=== PATIENT | male | born 1940 | race Caucasian/White ===

== ENCOUNTER 2017-06-13 08:51 | Day surgery (SDC) | payer MEDICARE, BC ==
[2017-06-12 10:42] LABS: BASOPHILS % (AUTO) 0.2 % (0-1); EOSINOPHILS # (AUTO) 0.2 X10'3 (0-0.9); EOSINOPHILS % (AUTO) 2.3 % (0-6); HEMATOCRIT 38.8 % (42.0-52.0); HEMOGLOBIN 13.3 g/dl (14.0-17.9); LYMPHOCYTES # (AUTO) 0.8 X10'3 (1.1-4.8); MEAN CORPUSCULAR HEMOGLOBIN 30.8 PG (27.0-31.0); MEAN CORPUSCULAR HGB CONC 34.3 % (33.0-36.5); MEAN CORPUSCULAR VOLUME 89.8 FL (78-98); MEAN PLATELET VOLUME 8.8 FL (7.4-10.4); MONOCYTES # (AUTO) 0.7 X10'3 (0-0.9); MONOCYTES % (AUTO) 10.1 % (2-12); NEUTROPHILS # (AUTO) 5.5 X10'3 (1.8-7.7); NEUTROPHILS % (AUTO) 76.4 % (42-75); PLATELET COUNT 121 X10'3 (140-440); RED BLOOD COUNT 4.32 X10'6 (4.70-6.10); RED CELL DISTRIBUTION WIDTH 14.4 % (11.5-14.5); WHITE BLOOD COUNT 7.1 X10'3 (4.5-11.0)
[2017-06-12 10:56] LABS: ALANINE AMINOTRANSFERASE 33 U/L (12-78); ALBUMIN 3.4 G/DL (3.4-5.0); ALBUMIN/GLOBULIN RATIO 0.8 (1.1-1.5); ALKALINE PHOSPHATASE 68 IU/L (46-116); ANION GAP 4 (8-16); ASPARTATE AMINO TRANSFERASE 21 U/L (10-37); BILIRUBIN,TOTAL 0.9 MG/DL (0.1-1.0); BLOOD UREA NITROGEN 26 MG/DL (7-18); BUN/CREATININE RATIO 23.4 (5.4-32.0); CHLORIDE 106 MMOL/L (99-107); CHOL/HDL RATIO 2.9 (0.00-4.99); CHOLESTEROL 100 MG/DL (0-200); CREATININE 1.11 MG/DL (0.60-1.10); GLUCOSE 97 MG/DL (70-104); HDL CHOLESTEROL 35 MG/DL (35-60); LDL CHOLESTEROL 52 MG/DL (50-100); POTASSIUM 4.4 MMOL/L (3.5-5.1); SODIUM 144 MMOL/L (135-145); TOTAL PROTEIN 7.8 G/DL (6.4-8.2); TRIGLYCERIDES 61 MG/DL (20-135); eGFR 64 ML/MIN
[~2017-06-13] VITALS: Ht 177.8 cm; Wt 95.4 kg
[2017-06-13] VITALS (10 sets, daily range): BP systolic 85–129; BP diastolic 41–79
[2017-06-13 09:39] LABS: INR 1.1 INR; PARTIAL THROMBOPLASTIN TIME 26 SECONDS (22-32); PROTHROMBIN TIME 11.1 SECONDS (9.0-12.0)
[2017-06-13] MEDS ORDERED: CARV25TA PO (10:12)
[2017-06-13] MEDS ORDERED: TEST200V10 IM (10:12)
[2017-06-13] MEDS ORDERED: GLUC15006 PO (10:12)
[2017-06-13] MEDS ORDERED: ASPI-611 PO (10:12)
[2017-06-13] MEDS ORDERED: CLOP75TA15 PO (10:12)
[2017-06-13] MEDS ORDERED: ROSU10TA PO (10:12)
[2017-06-13] MEDS ORDERED: UBID100C16 PO (10:12)
[2017-06-13] MEDS ORDERED: VALS80TA2 PO (10:12)
[2017-06-13] MEDS ORDERED: ISOS30TA6 PO (10:16)
[2017-06-13] MEDS ORDERED: diphenhydrAMINE 25mg capsule PO PRN (10:55)
[2017-06-13] MEDS ORDERED: LORazepam 0.5 MG tablet PO PRN (10:55)
[2017-06-13] MEDS ORDERED: normal saline 1000ml 1,000 ML IV SCH (10:55)
[2017-06-13] MEDS ORDERED: fentaNYL/PF 50MCG/1 ML 2ML syringe ONE (11:34)
[2017-06-13] MEDS ORDERED: nitroGLYCERIN-Tridil 50MG/D5W 250 ML IV ONE (11:34)
[2017-06-13] MEDS ORDERED: midazolam 2 mg/2 ml injection ONE (11:35)
[2017-06-13] MEDS ORDERED: heparin 1,000unit/ml 10ml vial 10 ML ONE (11:35)
[2017-06-13] MEDS ORDERED: LIDOcaine 1%/PF (10mg/ml) 5ml vial ONE (11:35)
[2017-06-13] MEDS ORDERED: iohexol 350 MG/ML 50ML vial IV ONE ×2 (11:35→12:23)
[2017-06-13] MEDS ORDERED: iohexol 350MG/ML 100ml bottle IV ONE (11:35)
[2017-06-13] MEDS ORDERED: furosemide 40mg/4ml inj ONE (12:54)
[2017-06-13 22:35] LABS: ISTAT HGB ART 11.9 g/dl (14.0-18.0); ISTAT Hct ART 35 %PCV (42-52); ISTAT O2 SATURATION ARTERIAL 98 % (95-98); ISTAT SOURCE ART
[2017-06-13 22:36] LABS: ISTAT Hct MIX 35 %PCV (42-52); ISTAT O2 SATURATION MIX VENOUS 70 % (60-80); ISTAT SOURCE MIX
== END 2017-06-13 19:00 | disposition home or self-care (01) ==
LOC: SSTAY O 08:51
PROVIDERS: ATTEND Internal Medicine Cardiovascular Disease
DX: I25.119 Atherosclerotic heart disease of native coronary artery with unspecified angina pectoris (principal); I11.0 Hypertensive heart disease with heart failure; I50.9 Heart failure, unspecified; E78.5 Hyperlipidemia, unspecified; G47.33 Obstructive sleep apnea (adult) (pediatric); I42.9 Cardiomyopathy, unspecified; I48.91 Unspecified atrial fibrillation; K21.9 Gastro-esophageal reflux disease without esophagitis; M19.90 Unspecified osteoarthritis, unspecified site; Z85.820 Personal history of malignant melanoma of skin; Z72.89 Other problems related to lifestyle; Z95.5 Presence of coronary angioplasty implant and graft; Z95.810 Presence of automatic (implantable) cardiac defibrillator; Z79.82 Long term (current) use of aspirin; Z86.74 Personal history of sudden cardiac arrest; Z87.891 Personal history of nicotine dependence; Z79.899 Other long term (current) drug therapy
CPT/HCPCS: 36415; 80053; 80061; 82803; 85014; 85025; 85610; 85730; 93005; 93460; 99152; 99153; A6257; C1760; C1769; J1644; J1940; J2001; J2250; J3010; J3490; J7030; Q0163; Q9967

== ENCOUNTER 2017-10-23 07:00 | Day surgery (SDC) | payer MEDICARE, BC ==
[2017-10-22 11:42] LABS: BASOPHILS % (AUTO) 0.3 % (0-1); EOSINOPHILS # (AUTO) 0.1 X10'3 (0-0.9); EOSINOPHILS % (AUTO) 1.4 % (0-6); HEMOGLOBIN 12.2 g/dl (14.0-17.9); LYMPHOCYTES # (AUTO) 0.7 X10'3 (1.1-4.8); LYMPHOCYTES % (AUTO) 12.9 % (21-51); MEAN CORPUSCULAR HEMOGLOBIN 30.6 PG (27.0-31.0); MEAN CORPUSCULAR VOLUME 90.1 FL (78-98); MEAN PLATELET VOLUME 9.5 FL (7.4-10.4); MONOCYTES # (AUTO) 0.5 X10'3 (0-0.9); MONOCYTES % (AUTO) 8.7 % (2-12); NEUTROPHILS # (AUTO) 4.4 X10'3 (1.8-7.7); NEUTROPHILS % (AUTO) 76.7 % (42-75); PLATELET COUNT 130 X10'3 (140-440); RED BLOOD COUNT 3.99 X10'6 (4.70-6.10); RED CELL DISTRIBUTION WIDTH 15.8 % (11.5-14.5); WHITE BLOOD COUNT 5.7 X10'3 (4.5-11.0)
[2017-10-22 11:51] LABS: ALBUMIN 3.6 G/DL (3.4-5.0); ANION GAP 4 (8-16); BLOOD UREA NITROGEN 35 MG/DL (7-18); BUN/CREATININE RATIO 22.9 (5.4-32.0); CALCIUM 8.9 MG/DL (8.5-10.1); CHLORIDE 103 MMOL/L (99-107); CREATININE 1.53 MG/DL (0.60-1.10); GLUCOSE 106 MG/DL (70-104); POTASSIUM 4.8 MMOL/L (3.5-5.1); SODIUM 138 MMOL/L (135-145); TOTAL CARBON DIOXIDE 30.7 MMOL/L (24-32); eGFR 44 ML/MIN
[2017-10-22 11:52] LABS: INR 1.1 INR; PROTHROMBIN TIME 11.8 SECONDS (9.0-12.0)
[2017-10-23] VITALS (12 sets, daily range): BP systolic 91–119; BP diastolic 56–76
[~2017-10-23] VITALS: Ht 177.8 cm; Wt 89.3 kg
[~2017-10-23 07:00] MED LIST: ASPI-611 PO; CARV25TA PO; CLOP75TA15 PO; GLUC15006 PO; ISOS30TA6 PO; LOSA25TA21 PO; ROSU10TA PO; TEST200V10 IM; UBID100C16 PO
[2017-10-23] MEDS ORDERED: morphine 10mg/ml inj. IV ONE (07:35)
[2017-10-23] MEDS ORDERED: LORazepam 0.5 MG tablet PO ONE (07:35)
[2017-10-23] MEDS ORDERED: atropine 0.1mg/ml 10ml syringe IV ONE (07:35)
[2017-10-23] MEDS ORDERED: normal saline 1000ml 1,000 ML IV SCH (07:35)
[2017-10-23] MEDS ORDERED: diphenhydrAMINE 25mg capsule PO ONE (07:35)
[2017-10-23] MEDS ORDERED: MIDAZolam 5mg/ml 2ml vial IV ONE (07:35)
[2017-10-23] MEDS ORDERED: amiodarone in dextrose, iso-osm 150mg/100ml bag IV ONE (07:35)
[2017-10-23] MEDS ORDERED: BUME1TAB4 PO (07:57)
[2017-10-23] MEDS ORDERED: IBUP-24 PO (07:57)
[2017-10-23] MEDS ORDERED: MULT-38 PO (07:57)
[2017-10-23] MEDS ORDERED: CARV3.12 PO (07:57)
[2017-10-23] MEDS ORDERED: APIX5TAB3 PO (07:57)
[2017-10-23] MEDS ORDERED: SPIR25TA5 PO (07:57)
== END 2017-10-23 11:45 | disposition home or self-care (01) ==
LOC: SSTAY O 07:00
PROVIDERS: ATTEND Internal Medicine Cardiovascular Disease
DX: I48.1 Persistent atrial fibrillation (principal); E78.5 Hyperlipidemia, unspecified; I25.10 Atherosclerotic heart disease of native coronary artery without angina pectoris; I42.0 Dilated cardiomyopathy; I45.19 Other right bundle-branch block; I13.0 Hypertensive heart and chronic kidney disease with heart failure and stage 1 through stage 4 chronic kidney disease, or unspecified chronic kidney disease; N18.9 Chronic kidney disease, unspecified; I50.22 Chronic systolic (congestive) heart failure; I25.2 Old myocardial infarction; G47.33 Obstructive sleep apnea (adult) (pediatric); I08.2 Rheumatic disorders of both aortic and tricuspid valves; I27.20 Pulmonary hypertension, unspecified; K21.9 Gastro-esophageal reflux disease without esophagitis; M19.90 Unspecified osteoarthritis, unspecified site; Z95.810 Presence of automatic (implantable) cardiac defibrillator; Z95.5 Presence of coronary angioplasty implant and graft; Z79.01 Long term (current) use of anticoagulants; Z79.82 Long term (current) use of aspirin; Z79.1 Long term (current) use of non-steroidal anti-inflammatories (NSAID); Z86.74 Personal history of sudden cardiac arrest; Z87.891 Personal history of nicotine dependence; Z72.89 Other problems related to lifestyle; Z90.89 Acquired absence of other organs; Z85.828 Personal history of other malignant neoplasm of skin; Z98.890 Other specified postprocedural states; Z79.899 Other long term (current) drug therapy; Z82.5 Family history of asthma and other chronic lower respiratory diseases; Z80.0 Family history of malignant neoplasm of digestive organs
CPT/HCPCS: 36415; 80048; 85025; 85610; 92960; 93005; J2250; J2270; J7030; A4620; A6449; J0282; J0461

== ENCOUNTER 2017-11-26 11:21 | Outpatient (CLI) | payer MEDICARE, BC ==
[~2017-11-26 11:21] MED LIST changes: +APIX5TAB3 PO; +BUME1TAB4 PO; -CARV25TA PO; +CARV3.12 PO; -CLOP75TA15 PO; +IBUP-24 PO; +LOSA25TA12 PO; -LOSA25TA21 PO; +MULT-38 PO; +SPIR25TA5 PO
== END 2017-11-26 23:59 | disposition home or self-care (01) ==
LOC: CARD DIAG 11:21
PROVIDERS: ATTEND Internal Medicine Cardiovascular Disease
DX: I08.3 Combined rheumatic disorders of mitral, aortic and tricuspid valves (principal); I42.8 Other cardiomyopathies; I50.9 Heart failure, unspecified; Z79.82 Long term (current) use of aspirin; Z87.891 Personal history of nicotine dependence; Z85.831 Personal history of malignant neoplasm of soft tissue
CPT/HCPCS: 93306

== ENCOUNTER 2018-07-03 07:22 | Outpatient (CLI) | payer MEDICARE, BC ==
[~2018-07-03] VITALS: Ht 177.8 cm; Wt 93.0 kg
[~2018-07-03 07:22] MED LIST changes: -LOSA25TA12 PO; +LOSA25TA41 PO; -ROSU10TA PO; +ROSU10TA2 PO
[2018-07-03 07:51] LABS: TOTAL HEMOGLOBIN 12.3 G/dl (14.0-18.0)
[2018-07-03] MEDS ORDERED: albuterol 2.5 MG/3 ML nebule NEB ONE (08:25)
== END 2018-07-03 23:59 | disposition home or self-care (01) ==
LOC: RT 07:22
PROVIDERS: ATTEND Internal Medicine Cardiovascular Disease
DX: R94.2 Abnormal results of pulmonary function studies (principal); Z79.899 Other long term (current) drug therapy
CPT/HCPCS: 71046; 85018; 94060; 94727; 94729; 94760

== ENCOUNTER 2021-02-16 10:13 | Outpatient (CLI) | payer MEDICARE, BC ==
[~2021-02-16] VITALS: Ht 177.8 cm; Wt 93.4 kg
[~2021-02-16 10:13] MED LIST changes: -BUME1TAB4 PO; +BUME1TAB8 PO; -ISOS30TA6 PO; +ISOS30TA84 PO; -TEST200V10 IM; +TEST200V33 IM
[2021-02-16 10:37] LABS: TOTAL HEMOGLOBIN 15.3 G/dl (14.0-18.0)
[2021-02-16] MEDS ORDERED: albuterol 2.5 MG/3 ML nebule NEB ONE ×2 (11:15→11:55)
== END 2021-02-16 23:59 | disposition home or self-care (01) ==
LOC: RT 10:13
PROVIDERS: ATTEND Internal Medicine Cardiovascular Disease
DX: R94.2 Abnormal results of pulmonary function studies (principal); M47.819 Spondylosis without myelopathy or radiculopathy, site unspecified; Z79.899 Other long term (current) drug therapy
CPT/HCPCS: 71046; 85018; 94060; 94727; 94729; 94760

== ENCOUNTER 2023-02-28 09:33 | Day surgery (SDC) | payer MEDICARE, BC ==
[2023-02-27 12:55] LABS: BASOPHILS % (AUTO) 0.4 % (0-1); EOSINOPHILS # (AUTO) 0.1 X10'3 (0-0.9); EOSINOPHILS % (AUTO) 2.1 % (0-6); HEMOGLOBIN 11.7 g/dl (14.0-17.9); LYMPHOCYTES # (AUTO) 0.8 X10'3 (1.1-4.8); LYMPHOCYTES % (AUTO) 13.1 % (21-51); MEAN CORPUSCULAR HEMOGLOBIN 30.9 PG (27.0-31.0); MEAN CORPUSCULAR HGB CONC 32.5 g/dL (33.0-36.5); MEAN PLATELET VOLUME 10.3 FL (7.4-10.4); MONOCYTES # (AUTO) 0.6 X10'3 (0-0.9); MONOCYTES % (AUTO) 9.8 % (2-12); NEUTROPHILS # (AUTO) 4.3 X10'3 (1.8-7.7); NEUTROPHILS % (AUTO) 74.6 % (42-75); PLATELET COUNT 116 X10'3 (140-440); RED BLOOD COUNT 3.79 X10'6 (4.70-6.10); RED CELL DISTRIBUTION WIDTH 16.3 % (11.5-14.5); WHITE BLOOD COUNT 5.8 X10'3 (4.5-11.0)
[2023-02-27 12:57] LABS: INR 1.2 INR; PROTHROMBIN TIME 13.1 SECONDS (9.0-12.0)
[2023-02-27 13:24] LABS: ALBUMIN 3.4 G/DL (3.4-5.0); ANION GAP 6 (8-16); BLOOD UREA NITROGEN 40 MG/DL (7-18); BUN/CREATININE RATIO 30.3 (10.0-20.0); CALCIUM 8.8 MG/DL (8.5-10.1); CHLORIDE 106 MMOL/L (99-107); CREATININE 1.32 MG/DL (0.60-1.10); GLUCOSE 89 MG/DL (70-104); SODIUM 142 MMOL/L (135-145); TOTAL CARBON DIOXIDE 30.3 MMOL/L (24-32); eGFR 52 ML/MIN
[~2023-02-28] VITALS: Ht 10 cm; Wt 89.2 kg
[2023-02-28] VITALS (12 sets, daily range): BP systolic 100–114; BP diastolic 56–87; PULSE 64–86; RESP 16; TEMP 97.7; O2SAT 94–98
[~2023-02-28 09:33] MED LIST changes: +AMIO100T4 PO; +BUME1TAB34 PO; -BUME1TAB8 PO; +CARV-49 PO; -CARV3.12 PO; +FERR-39 PO; -IBUP-24 PO; +MESA0.37 PO; -MULT-38 PO; -SPIR25TA5 PO; +TEST1.25 TD; -TEST200V33 IM
[2023-02-28] MEDS ORDERED: diphenhydrAMINE 25mg capsule PO ONE (09:50)
[2023-02-28] MEDS ORDERED: atropine 0.1mg/ml 10ml syringe IV ONE (09:50)
[2023-02-28] MEDS ORDERED: MIDAZolam 1mg/ml 10ml vial IV ONE (09:50)
[2023-02-28] MEDS ORDERED: normal saline 1000ml 1,000 ML IV SCH (09:50)
[2023-02-28] MEDS ORDERED: LORazepam 0.5 MG tablet PO ONE (09:50)
[2023-02-28] MEDS ORDERED: amiodarone 150mg/dext, iso-os 100 ML IV ONE (09:50)
[2023-02-28] MEDS ORDERED: morphine 10mg/ml inj. IV ONE (09:50)
[2023-02-28] MEDS ORDERED: SACU1TAB PO (10:05)
== END 2023-02-28 13:35 | disposition home or self-care (01) ==
LOC: SSTAY O 09:33
PROVIDERS: ATTEND Internal Medicine Cardiovascular Disease
DX: I48.19 Other persistent atrial fibrillation (principal); I11.0 Hypertensive heart disease with heart failure; I50.22 Chronic systolic (congestive) heart failure; I25.10 Atherosclerotic heart disease of native coronary artery without angina pectoris; I42.0 Dilated cardiomyopathy; I25.5 Ischemic cardiomyopathy; I08.3 Combined rheumatic disorders of mitral, aortic and tricuspid valves; G47.30 Sleep apnea, unspecified; E78.5 Hyperlipidemia, unspecified; E05.90 Thyrotoxicosis, unspecified without thyrotoxic crisis or storm; I27.20 Pulmonary hypertension, unspecified; Z95.810 Presence of automatic (implantable) cardiac defibrillator; Z88.7 Allergy status to serum and vaccine; Z87.891 Personal history of nicotine dependence; Z95.5 Presence of coronary angioplasty implant and graft; Z79.82 Long term (current) use of aspirin; Z79.899 Other long term (current) drug therapy; Z79.01 Long term (current) use of anticoagulants
CPT/HCPCS: 36415; 80048; 85025; 85610; 92960; 93005; J2250; J2274; J7030; A4620

== ENCOUNTER 2023-03-07 14:48 | Outpatient (CLI) | payer MEDICARE, BC ==
[~2023-03-07 14:48] MED LIST changes: -GLUC15006 PO; -LOSA25TA41 PO; -MESA0.37 PO; +SACU1TAB PO
== END 2023-03-07 23:59 | disposition home or self-care (01) ==
LOC: LAB 14:48
PROVIDERS: ATTEND Internal Medicine Cardiovascular Disease
DX: R06.02 Shortness of breath (principal)
CPT/HCPCS: 36415; 83880